=== PATIENT | male | born 1990 | race Hispanic/Latino ===

== ENCOUNTER 2021-05-16 06:00 | Emergency (ER) | payer SELFPAY ==
[~2021-05-16] VITALS: Ht 180.3 cm; Wt 80.7 kg
[~2021-05-16 06:00] MED LIST: ANAPROX DS550 MG PO
[2021-05-16] MEDS ORDERED: ONDANSETRON ODT4 MG PO (09:10)
== END 2021-05-16 09:31 | disposition home or self-care (01) ==
LOC: ED 06:00
DX: R10.32 Left lower quadrant pain (principal); R11.2 Nausea with vomiting, unspecified; R19.4 Change in bowel habit
CPT/HCPCS: 74177; 80053; 81001; 83690; 83735; 85025; 99284-25; J1885; J2405; J7030; Q9967